=== PATIENT | male | born 1970 | race Caucasian/White ===

== ENCOUNTER 2017-05-18 13:32 | Inpatient (IN) | payer OTHER ==
[~2017-05-18] VITALS: Ht 167.6 cm; Wt 68.0 kg
[2017-05-18 14:00] VITALS: BP 97/55
--- NOTE | 2017-05-18 14:29 | NUR ---
CALLED NURSE RENATO FOR MED-SURG BED
[2017-05-18 14:30] LABS: BASOPHILS % (AUTO) 0.6 % (0.0-2.0); EOSINOPHILS # (AUTO) 0.2 /CMM (0.0-0.7); EOSINOPHILS % (AUTO) 2.7 % (0.0-6.0); HEMATOCRIT 38 % (39-51); HEMOGLOBIN 12.7 g/dL (13.5-17.5); LYMPHOCYTES # (AUTO) 1.3 /CMM (0.8-4.8); LYMPHOCYTES % (AUTO) 18.9 % (20.0-44.0); MEAN CORPUSCULAR HEMOGLOBIN 29 PG (26.0-33.0); MEAN CORPUSCULAR HGB CONC 33 g/dl (31.0-36.0); MEAN CORPUSCULAR VOLUME 87 fL (80-96); MONOCYTES # (AUTO) 0.5 /CMM (0.1-1.30); MONOCYTES % (AUTO) 7.9 % (2.0-12.0); NEUTROPHILS # (AUTO) 4.7 /CMM (1.8-8.9); NEUTROPHILS % (AUTO) 69.9 % (43.0-81.0); PLATELET COUNT (AUTO) 169 /CMM (150-450); RDW COEFFICIENT OF VARIATION 13.4 (11.5-15.0); WHITE BLOOD COUNT (AUTO) 6.7 K/uL (4.3-11.0)
[2017-05-18] MEDS ORDERED: PIPERACILLIN /TAZOBACTAM 3.375 G in IV D5W 50 ML IV ONE (14:30)
[2017-05-18] MEDS ORDERED: VANCOMYCIN 1 GM in IV D5W 250 ML IV ONE (14:30)
[2017-05-18] MEDS ORDERED: IV NS 0.9% 1,000 ML BAG IV ONE (14:30)
[2017-05-18 14:39] LABS: CALCIUM, SERUM 8.5 mg/dL (8.5-10.1); CREATININE 0.9 mg/dL (0.6-1.3); POTASSIUM 4.2 mmol/L (3.5-5.1)
[2017-05-18 14:45] LABS: ALBUMIN 3.5 g/dL (3.4-5.0); BILIRUBIN,TOTAL 0.7 mg/dL (0.2-1.0); TOTAL PROTEIN, SERUM 7.1 g/dL (6.4-8.2)
--- NOTE | 2017-05-18 15:50 | NUR ---
MS/SOLAR INSTALLER PATIENT TRANSFER TO MS FLOOR FROM ER VIA STRETCHER. A/O X 4. NO SIGNS OF ACUTE DISTRESS. NO COMPLAIN OF PAIN OR DISCOMFORT. REPORT GIVEN BY JIGNESH FROM ER. ALL NEEDS ATTENDED TO AT THIS TIME. CALL LIGHT WITHIN REACH. WILL CONTINUE TO MONITOR TO ENSURE SAFETY.
[2017-05-18] MEDS ORDERED: FEE PK DOSING 1 MIN EA MC ONE (16:24)
[2017-05-18] MEDS ORDERED: HYDROCODONE/APAP 10/325MG 1 EA TABLET PO PRN (16:30)
[2017-05-18] MEDS ORDERED: MAGNESIUM HYDROXIDE 30 ML UDC PO PRN (16:30)
[2017-05-18] MEDS ORDERED: HYDROCODONE/APAP 5/325MG 1 EACH TABLET PO PRN (16:30)
[2017-05-18] MEDS ORDERED: ZOLPIDEM TARTRATE 5 MG TABLET PO PRN (16:30)
[2017-05-18] MEDS ORDERED: MAG HYDROX/AL HYDROX/SIMETH 30 ML UDC PO PRN (16:30)
[2017-05-18] MEDS ORDERED: ACETAMINOPHEN 325 MG TABLET PO PRN (16:30)
[2017-05-18] MEDS ORDERED: ONDANSETRON HCL/PF 4 MG/2 ML VIAL IVP PRN (16:30)
[2017-05-18] MEDS: IV NS 0.9% 1,000 ML IV PRN (17:43)
--- NOTE | 2017-05-18 18:15 | NUR ---
MS/RN CLOSING NOTE PATIENT IN BED IN STABLE CONDITION. A/O X 4. NO SIGNS OF ACUTE DISTRESS. NO COMPLAIN OF PAIN OR DISCOMFORT. LEFT HAND CELLULITIS SITE NOTED WITH SEROSANGUINEOUS DRAINAGE. MILD AMOUNT, OFFERED TO PATIENT THE SITE NEEDS TO BE COVERED WITH GAUGE FOR NOW TILL ASSESS BY WOUND NURSE. PER PATIENT REFUSED TO HAVE SITE COVERED. OFFERED TIMES 3 WITH RISK AND BENEFITS EXPLAINED STILL CONTINUE TO REFUSE. METROLOGY MANAGER WILFREDO AWARE. ALL NEEDS ATTENDED TO. CALL LIGHT WITHIN REACH. WILL ENDORSE TO NEXT SHIFT FOR CONTINUITY OF CARE.
--- NOTE | 2017-05-18 19:54 | NUR ---
MS/RN OPENING NOTES PATIENT IN BED, AWAKE, ALERTX3. ABLE TO VERBALIZE NEEDS. REPORTED THAT HE HAS CONCERNS WITH HIS STAY AND WOULD LIKE TO DISCUSS WITH MD AND VERA BUT HE STATED HE WANTS TO BE TREATED FOR HIS INFECTION VIA IV ATB AT THIS TIME, , LEFT HAND CELLULITIS LEFT OPEN PER PATIENT REQUEST. ATTEND TO NEEDS AND CALL LIGHTS WITHIN REACH. BED IN LOCK POSITION. RECEIVED REPORT FROM REBECA RN.
[2017-05-18 20:00] VITALS: BP 103/56
[2017-05-18] MEDS: PIPERACILLIN /TAZOBACTAM 3.375 G in IV D5W 50 ML IV SCH (20:38)
--- NOTE | 2017-05-18 21:00 | NUR ---
MS/RN NOTES PATIENT OBSERVED GUARDING AND GRIMACE.,REFUSE TO HAVE PAIN MEDICATION OF NORCO MG BY MOUTH SAID THE MEDICINE DOES NOT WORK FOR HIM.
[2017-05-18] MEDS: VANCOMYCIN 1 GM in IV D5W 250 ML IV SCH (21:57)
[2017-05-19] MEDS: PIPERACILLIN /TAZOBACTAM 3.375 G in IV D5W 50 ML IV SCH ×3 (02:13→23:58)
[2017-05-19] MEDS: VANCOMYCIN 1 GM in IV D5W 250 ML IV SCH ×2 (05:21→22:02)
--- NOTE | 2017-05-19 06:32 | NUR ---
PATIENT IN BED, ALERT, ORIENTED X3. ABLE TO VERBALIZE NEEDS, IV ATB ADMINISTERED W/ NO S/S OF ADVERSE EFFECT. ON IV NS AT 75ML/HR. REFUSE ORAL PAIN MEDICATION. LEFT HAND CELLULITIS , SWOLLEN W/ DRAINAGE, PATIENT REFUSED TO HAVE WOUND CLEANSE/COVERED INFORMED THE BENEFIT/INFECTION CONTROL MEASURES. VERBALIZED UNDERSTANDING. BED IN LOCK POSITION. CALL LIGHTS WITHIN REACH.
--- NOTE | 2017-05-19 07:42 | NUR ---
ms/rn notes patient reported pain in left hand and requested for po norco 10-325 mg. also asked help to be change and cleansed. will monitor pain effectiveness.
--- NOTE | 2017-05-19 07:48 | NUR ---
MS RN OPENING NOTE RECEIVED BEDSIDE SBAR REPORT. PATIENT IS A/O X4, AWAKE, RESPONSIVE. PRESENTS WITH UNLABORED BREATHING. CHEST RISING EQUALLY BILATERALLY. NO S/S OF DISTRESS. DENIES PAIN/DISCOMFORT AT THIS TIME. STANDING AT THE BEDSIDE USING HIS CELL PHONE. BED IS LOCKED IN LOWEST POSITION, SIDE RAILS UP X2. CALL LIGHT WITHIN REACH. PATIENT IS EDUCATED TO USE THE CALL LIGHT TO CALL FOR ASSISTANCE VIA TEACH BACK METHOD AND VERBALIZED UNDERSTANDING.ALL NEEDS ARE MET AT THIS TIME. WILL CONTINUE TO ASSESS/MONITOR THROUGHOUT THE SHIFT.
[2017-05-19 08:00] VITALS: BP_SYST 101; BP_SYST 109; BP_DIAS 61; BP_DIAS 66
[2017-05-19] MEDS: IV NS 0.9% 1,000 ML IV PRN (08:41)
--- NOTE | 2017-05-19 10:32 | NUR ---
MS RN NOTE DR CURTIS AT THE BEDSIDE. VERBAL ORDERS RECEIVED. WILL CARRY ORDERS RECEIVED.
[2017-05-19] MEDS ORDERED: LORAZEPAM INJ 2 MG/ML VIAL IV PRN (11:00)
[2017-05-19 13:37] LABS: BASOPHILS % (AUTO) 0.6 % (0.0-2.0); EOSINOPHILS # (AUTO) 0.2 /CMM (0.0-0.7); EOSINOPHILS % (AUTO) 3.4 % (0.0-6.0); HEMATOCRIT 39 % (39-51); HEMOGLOBIN 12.7 g/dL (13.5-17.5); LYMPHOCYTES # (AUTO) 1.6 /CMM (0.8-4.8); LYMPHOCYTES % (AUTO) 30.9 % (20.0-44.0); MEAN CORPUSCULAR HEMOGLOBIN 29 PG (26.0-33.0); MEAN CORPUSCULAR HGB CONC 33 g/dl (31.0-36.0); MEAN CORPUSCULAR VOLUME 89 fL (80-96); MONOCYTES # (AUTO) 0.6 /CMM (0.1-1.30); NEUTROPHILS # (AUTO) 2.8 /CMM (1.8-8.9); NEUTROPHILS % (AUTO) 54.1 % (43.0-81.0); PLATELET COUNT (AUTO) 154 /CMM (150-450); RDW COEFFICIENT OF VARIATION 14.3 (11.5-15.0); WHITE BLOOD COUNT (AUTO) 5.2 K/uL (4.3-11.0)
[2017-05-19 13:51] LABS: CALCIUM, SERUM 8.4 mg/dL (8.5-10.1); MAGNESIUM 1.9 mg/dL (1.8-2.4); PHOSPHORUS 3.7 mg/dL (2.5-4.9); POTASSIUM 4.3 mmol/L (3.5-5.1)
--- NOTE | 2017-05-19 13:55 | NUR ---
MS RN NOTE PATIENT'S IV INFILTRATED. ATIVAN IV IS NOT ADMINISTERED. ICE APPLIED. SPOKE TO DR. CURTIS. ATIVAN IS CHANGED TO PO. DR. CURTIS INFORMED THAT PATIENT HAS NO IV ACCESS. PER DR CURTIS NO MIDLINE. WILL ATTEMPT TO REINSERT IV AGAIN.
[2017-05-19] MEDS ORDERED: MORPHINE SULFATE INJ 2 MG/ML DISP.SYRIN IM ONE (14:00)
--- NOTE | 2017-05-19 14:08 | NUR ---
MS RN NOTE L/HAND INCISION AND DRAINAGE PERFORMED BY MIGUELANGEL JULES NP AT THE BEDSIDE. SPECIMEN OBTAINED. LAB INFORMED.
[2017-05-19] MEDS: LORAZEPAM 1 MG TABLET PO PRN ×2 (14:15→21:23)
--- NOTE | 2017-05-19 14:20 | NUR ---
MS RN NOTE PATIENT WAS IN PAIN, AGITATED AND ANXIOUS DURING THE INCISION AND DRAINAGE PROCEDURE. ONE TIME MORPHINE ORDERED AND ADMINISTERED PRESCRIBED. ATIVAN ADMINISTERED PRESCRIBED. WILL CONTINUE TO ASSESS.
--- NOTE | 2017-05-19 14:32 | NUR ---
MS RN NOTE MIDLINE ORDER OBTAINED. NURSING EPIC BEACON ANALYST INFORMED.
[2017-05-19 16:00] VITALS: BP 101/61
[2017-05-19] MEDS: LACTOBACILLUS RHAMNOSUS GG 1 EACH CAP.SPRINK PO SCH (17:00)
--- NOTE | 2017-05-19 18:50 | NUR ---
MS RN CLOSING NOTE GAVE BEDSIDE SBAR REPORT TO CARMELINA WINSTON FOR JAMISON. PATIENT IS A/O X4, AWAKE, RESPONSIVE. PRESENTS WITH UNLABORED BREATHING. CHEST RISING EQUALLY BILATERALLY. NO S/S OF DISTRESS. DENIES PAIN/DISCOMFORT AT THIS TIME. PATIENT IS LAYING IN BED. BED IS LOCKED IN LOWEST POSITION, SIDE RAILS UP X2. CALL LIGHT WITHIN REACH. PATIENT IS EDUCATED TO USE THE CALL LIGHT TO CALL FOR ASSISTANCE VIA TEACH BACK METHOD AND VERBALIZED UNDERSTANDING.ALL NEEDS ARE MET AT THIS TIME. ENDORSED TO THE DIRECTOR SCHOOL FOR [employer] FOR JAMISON.
[2017-05-19 20:00] VITALS: BP 102/46
--- NOTE | 2017-05-19 20:00 | NUR ---
RN NOTES RECEIVED PATIENT IN BED, ALERT, IRRITATED, NO SOB, NO RESPIRATORY DISTRESS, PER PATIENT "MY LEFT HAND IS PAINFUL, I UNDERSTAND MY PAIN MEDICATIONS IS NOT DUE YET." ABDOMEN SOFT AND NON-TENDER, LEFT HAND IS SECURED WITH DRESSING. CONTINENT OF BOWEL AND BLADDER, NO IV LINE, FOR MIDLINE INSERTION. AM NURSE FOLLOWED UP WITH RN TESTING PROJECTS ADMINISTRATOR. KEPT COMFORTABLE, CALL LIGHT WITHIN REACH.
[2017-05-19] MEDS: oxyCODONE/APAP (5/325 MG) 1 UDTAB TABLET PO PRN (20:21)
--- NOTE | 2017-05-19 20:21 | NUR ---
CARMELINA LABOY MIDLINE INSERTED TO LEFT UPPER ARM WITH #18 CATHETER. PROCEDURE TOLERATED WELL. Addendum: 05/19/17 at 2040 by NICOLE NATION RN CORRECTION TO IV ACCESS: MIDLINE TO RIGHT UPPER ARM
[2017-05-19] MEDS ORDERED: PIPERACILLIN /TAZOBACTAM 3.375 G in IV D5W 50 ML IV SCH (22:00)
--- NOTE | 2017-05-19 22:30 | NUR ---
RN NOTES VANCOMYCIN IV FELL DOWN TO THE FLOOR AND BROKE, WILL ASK FOR REPLACEMENT
[2017-05-19] MEDS ORDERED: VANCOMYCIN 1 GM in IV D5W 250 ML IV SCH (23:00)
[2017-05-20] MEDS ORDERED: VANCOMYCIN 1 GM VIAL ONE (04:39)
[2017-05-20] MEDS: VANCOMYCIN 1 GM in IV D5W 250 ML IV SCH (05:04)
[2017-05-20] MEDS: PIPERACILLIN /TAZOBACTAM 3.375 G in IV D5W 50 ML IV SCH (06:28)
[2017-05-20] MEDS: IV NS 0.9% 1,000 ML IV PRN (06:29)
[2017-05-20] MEDS: oxyCODONE/APAP (5/325 MG) 1 UDTAB TABLET PO PRN (06:33)
--- NOTE | 2017-05-20 07:09 | NUR ---
RN NOTES PATIENT RESTING COMFORTABLY IN BED, ALERT AND AWAKE, NO SOB, NO RESPIRATORY DISTRESS, PROVIDED PAIN MEDICATION AND ATIVAN DURING SHIFT, PROVIDED WOUND CARE ORDERED, ASHLEY MIDLINE IS PATENT AND INFUSING WELL. ALL NEEDS ATTENDED, CALL LIGHT WITHIN REACH.
--- NOTE | 2017-05-20 07:33 | NUR ---
MS RN OPENING NOTES RECEIVED PT FROM NIGHTSHIFT NURSE IN STABLE CONDITION. PT IS A/O X4. NO SOB OR SIGNS OF DISTRESS NOTED. BREATHING IS EVEN AND UNLABORED. PT DENIES ANY PAIN AT THIS TIME. WOUND TO PT'S LEFT HAND NOTED. DRESSING IS NON SOILED AND INTACT. RIGHT UPPER ARM MIDLINE NOTED TO BE INTACT AND PATENT INFUSING NS @75ML/HR. PT IS TOLERATING INFUSION WELL. NO REDNESS OR SIGNS OF INFILTRATION NOTED. BED IN LOW LOCKED POSITION, SIDE RAILS UP X2, CALL LIGHT WITHIN REACH. WILL CONTINUE TO MONITOR
[2017-05-20] MEDS: LORAZEPAM 1 MG TABLET PO PRN (07:42)
[2017-05-20 08:00] VITALS: BP 111/60
[2017-05-20] MEDS: LACTOBACILLUS RHAMNOSUS GG 1 EACH CAP.SPRINK PO SCH (08:01)
--- NOTE | 2017-05-20 08:17 | NUR ---
Social Service Consult was requested by Dr. Herr for homelessness and IV Drug Use (heroin). cut off worker met with the patient bedside. Patient was alert and oriented x3. He was able to respond to questions posed by the high school social science teacher. Patient was however short with his responses and remained guarded in his responses. Patient reported that he has been homeless for the past three years and has been [address] Patient stated that he did not wish to disclose where exactly he was staying and did not want to provide cross streets. Patient noted that he makes money by doing [employer] jobs. 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 He denied suicidal/homicidal ideations as well as denied auditory/visual hallucinations. He reports no psych history. cut off worker spoke to the patient about resources ([facility], food rojas, low cost medical clinics, substance abuse treatment programs, etc) and patient stated he does not need resources. He stated "I can probably tell you about resources. Resources do me no good." Patient noted that he is very knowledgeable about the resources that are available to the homeless community. He stated that he does have a primary care doctor (Dr. Boubacar Chavez) that he is able to follow up for medical care. He denied any resources from this high school social science teacher and stated that he would like to return to his "spot." He denied substance abuse treatment programs/placement. Patient reported that his bike is locked outside and he plans to ride his bike once he is discharged from the hospital. cut off worker had patient sign the homeless patient waiver form and discharge plan is for the patient to return to his previous living arrangement. Homeless patient waiver form was placed into the patient's chart. cut off worker communicated with patient's nurse Tri regarding the patient's discharge plan. cut off worker will remain available for the patient if needed.
[2017-05-20 09:01] LABS: CALCIUM, SERUM 8.2 mg/dL (8.5-10.1); POTASSIUM 3.9 mmol/L (3.5-5.1)
--- NOTE | 2017-05-20 11:31 | NUR ---
MS RN AMA NOTES PT STATES THAT HE WOULD LIKE TO LEAVE AMA DESPITE BEING UNSTABLE FOR DISCHARGE. PER PT "I HAVE THINGS TO DO AND CAN'T STAY ANY LONGER". DR. CURTIS SPOKE TO THE PATIENT ABOUT THE RISKS INVOLVED WITH LEAVING AMA, BUT HE PERSISTS ON LEAVING. AMA FORM SIGNED BY PT. MIDLINE WAS SUCCESSFULLY REMOVED AND ID BAND WAS TAKEN OFF. PT WAS SEEN BY REGISTERED NURSE CARDIAC BUT REFUSES HELP FROM OUTSIDE RESOURCES AND PLACEMENT. PT LEFT WITH ALL HIS BELONGINGS ALONG WITH A ABX PRESCRIPTION. WOUND CARE WAS RENDERED PRIOR TO DISCHARGE. ALL NEEDS WERE MET DURING SHIFT AND ORDERS CARRIED OUT ACCORDINGLY.
--- NOTE | 2017-05-20 19:41 | NUR ---
NACHO INCIDENT REPORT Unique Id: [id number]
== END 2017-05-20 10:30 | disposition left against medical advice (07) | DRG 364 ==
LOC: ER 13:38 → MEDSG2 15:25
PROVIDERS: ADMIT Nurse Practitioner Acute Care; ATTEND Nurse Practitioner Acute Care
PROC: 05H533Z Insertion of Infusion Device into Right Subclavian Vein, Percutaneous Approach (ICD-10-PCS; principal; 2017-05-19)
PROC: 0K9D0ZZ Drainage of Left Hand Muscle, Open Approach (ICD-10-PCS; principal; 2017-05-19)
PROC: 0J9K0ZZ Drainage of Left Hand Subcutaneous Tissue and Fascia, Open Approach (ICD-10-PCS; principal; 2017-05-19)
DX: L03.114 Cellulitis of left upper limb (principal); F11.10 Opioid abuse, uncomplicated; L02.512 Cutaneous abscess of left hand; Z59.0 Homelessness; F17.210 Nicotine dependence, cigarettes, uncomplicated
CPT/HCPCS: 36415; 71010-TC; 73130-TC; 80048-TC; 80053-TC; 80202-TC; 83735-TC; 84100-TC; 85025-TC; 87070-TC; 87081-TC; A4606; A6402; A6407; J2060; J2270; J2543; J3370; J7030; J7060; Z7610

== ENCOUNTER 2019-06-12 07:54 | Emergency (ER) | payer OTHER ==
[~2019-06-12] VITALS: Ht 162.6 cm; Wt 62.6 kg
--- NOTE | 2019-06-12 07:58 | NUR ---
BIBA 61 "Took Fentanyl this morning around 6am GF called 911 he was on the floor cool pale/diaphoretic/NOT breathing-syringe gave 2Narcan IV-woke up", TO ER BED 9, HOOKED TO MONITOR, VSS. AWAITING MD FELDMAN. KEPT SAFE AND COMFORTABLE.
--- NOTE | 2019-06-12 08:04 | NUR ---
DR RAMIRES AT BEDSIDE
--- NOTE | 2019-06-12 08:16 | NUR ---
PROVIDE W FOOD TRAY, TOLERATING PO WELL.
--- NOTE | 2019-06-12 08:38 | NUR ---
Patient does not wish to proceed with medical care recommended by Dr. Smalls. Patient given information related to possible complications, up to and including , which could occur as a result of leaving the hospital at this time. Patient verbalizes understanding of risks involved due to leaving against medical advice. Patient has signed AMA form.
[2019-06-12 08:42] VITALS: BP 148/97
== END 2019-06-12 08:43 | disposition left against medical advice (07) ==
LOC: ER 07:57
DX: T40.601A Poisoning by unspecified narcotics, accidental (unintentional), initial encounter (principal); F17.200 Nicotine dependence, unspecified, uncomplicated; Y92.89 Other specified places as the place of occurrence of the external cause

== ENCOUNTER 2024-11-13 21:31 | Emergency (ER) | payer OTHER ==
[~2024-11-13] VITALS: Ht 167.6 cm; Wt 68.0 kg
[2024-11-13] MEDS ORDERED: ONDANSETRON HCL/PF 4 MG/2 ML VIAL ONE ×2 (22:04→23:28)
[2024-11-13 22:07] LABS: BASOPHILS # (AUTO) 0.1 K/uL (0.0-0.2); BASOPHILS % (AUTO) 2.6 % (0.0-2.0); EOSINOPHILS # (AUTO) 0.2 K/uL (0.0-0.7); EOSINOPHILS % (AUTO) 3.9 % (0.0-6.0); HEMATOCRIT 42 % (39-51); HEMOGLOBIN 14.1 g/dL (13.5-17.5); LYMPHOCYTES # (AUTO) 2.3 K/uL (0.8-4.8); LYMPHOCYTES % (AUTO) 43.7 % (20.0-44.0); MEAN CORPUSCULAR HEMOGLOBIN 33 PG (26.0-33.0); MEAN CORPUSCULAR HGB CONC 33 g/dl (31.0-36.0); MEAN CORPUSCULAR VOLUME 99 fL (80-96); MONOCYTES # (AUTO) 0.3 K/uL (0.1-1.30); MONOCYTES % (AUTO) 6.6 % (2.0-12.0); NEUTROPHILS # (AUTO) 2.2 K/uL (1.8-8.9); NEUTROPHILS % (AUTO) 43.2 % (43.0-81.0); PLATELET COUNT (AUTO) 256 K/uL (150-450); RED BLOOD CELL COUNT(AUTO) 4.27 MIL/uL (4.5-6.0); RED CELL DISTRIBUTION WIDTH 15.3 % (11.5-15.0); WHITE BLOOD COUNT (AUTO) 5.2 K/uL (4.3-11.0)
[2024-11-13] MEDS: ONDANSETRON HCL/PF 4 MG/2 ML VIAL IV ONE ×2 (22:08→23:33)
[2024-11-13 22:17] LABS: CALCIUM, SERUM 8.7 mg/dL (8.5-10.1); CARBON DIOXIDE 22 mmol/L (21-32); CHLORIDE 104 mmol/L (98-107); GLUCOSE 119 mg/dL (74-106); POTASSIUM 3.4 mmol/L (3.5-5.1); SODIUM SERUM 142 mmol/L (136-145); UREA NITROGEN, BLOOD 17 mg/dL (7-18)
[2024-11-13 22:23] LABS: ACETAMINOPHEN <10 ug/ml (10-30); ALANINE AMINOTRANSFERASE 38 U/L (12-78); ALBUMIN 3.9 g/dL (3.4-5.0); ALCOHOL, BLOOD 144 mg/dL (0-10); ALKALINE PHOSPHATASE 88 U/L (46-116); ASPARTATE AMINOTRANSFERASE 87 U/L (15-37); BILIRUBIN,DIRECT 0.2 mg/dL (0.0-0.2); BILIRUBIN,TOTAL 0.4 mg/dL (0.2-1.0); SALICYLATE 0.5 mg/dL (2.8-20.0); TOTAL PROTEIN, SERUM 7.7 g/dL (6.4-8.2)
[2024-11-13 22:36] LABS: AMPHETAMINE, URINE NEGATIVE (NEGATIVE); BARBITURATE, URINE NEGATIVE (NEGATIVE); BENZODIAZEPINE, URINE NEGATIVE (NEGATIVE); CANNABINOID, URINE NEGATIVE (NEGATIVE); COCCAINE, URINE NEGATIVE (NEGATIVE); OPIATE, URINE NEGATIVE (NEGATIVE); PHENCYCLIDINE SCREEN,URINE NEGATIVE (NEGATIVE)
[2024-11-13 22:41] LABS: APPEARANCE,URINE CLEAR (CLEAR); BILIRUBIN,URINE NEGATIVE (NEGATIVE); BLOOD, URINE 1+ Ery/uL (NEGATIVE); COLOR,URINE YELLOW (YELLOW); KETONES,URINE TRACE mg/dL (NEGATIVE); LEUKOCYTE ESTERASE ,URINE NEGATIVE (NEGATIVE); NITRITE, URINE NEGATIVE (NEGATIVE); PROTEIN,URINE 1+ mg/dl (NEGATIVE); UGLUCOSE NEGATIVE (NEGATIVE); UROBILINOGEN,URINE 0.2 EU/dL (0.2)
[2024-11-13 23:33] LABS: ADD URINE CULTURE YES; BACTERIA,URINE Moderate /HPF (None Seen)
[2024-11-13 23:34] LABS: COARSE GRANULAR CASTS,URINE Few /LPF (None Seen); MUCUS,URINE Many /LPF (None Seen); SQUAMOUS EPITHELIAL CELL,UR Few /HPF (None Seen)
[2024-11-14 04:14] VITALS: BP 147/101; TEMP 98; O2SAT 97
== END 2024-11-14 04:16 | disposition home or self-care (01) ==
LOC: ER 21:38
DX: T50.991A Poisoning by other drugs, medicaments and biological substances, accidental (unintentional), initial encounter (principal); F10.129 Alcohol abuse with intoxication, unspecified; R61 Generalized hyperhidrosis; R11.2 Nausea with vomiting, unspecified; F17.200 Nicotine dependence, unspecified, uncomplicated; F19.10 Other psychoactive substance abuse, uncomplicated; Z20.822 Contact with and (suspected) exposure to COVID-19; Z59.00 Homelessness unspecified; Y92.89 Other specified places as the place of occurrence of the external cause; Y90.6 Blood alcohol level of 120-199 mg/100 ml
CPT/HCPCS: 99285; 96374; 93005; 96376; 85025; 80048; 87086; 80076; 81001; 36415; 87426; 80143; 80320; 80307; J2405 ×2; G0480